=== PATIENT | female | born 1970 | race African-American/Black ===

== ENCOUNTER 2023-02-20 22:13 | Observation (INO) | payer OTHER ==
[2023-02-20] MEDS ORDERED: ACETAMINOPHEN 1000 MG/100 ML BAG IVPB ONE (23:50)
[2023-02-20] MEDS ORDERED: ACETAMINOPHEN INJECTION 100 ML IVPB ONE (23:59)
[2023-02-21 00:08] LABS: BASO % 0.8 % (0-2.0); HEMATOCRIT 25.6 % (32.4-45.2); HEMOGLOBIN 8.4 GM/dL (10.7-15.3); LYMPH % 21.2 % (8-40); MCH 24.7 pg (25.7-33.7); MCHC 32.7 g/dl (32.0-36.0); MEAN CELL VOLUME 75.5 fl (80-96); MONO % 13.1 % (3.8-10.2); NEUT % 63.9 % (42.8-82.8); PLATELET COUNT 305 10^3/uL (134-434); RBC 3.39 M/mm3 (3.60-5.2); RDW 16.2 % (11.6-15.6); WHITE BLOOD COUNT 6.9 K/mm3 (4.0-10.0)
[2023-02-21 00:30] LABS: URINE APPEARANCE CLEAR; URINE BILIRUBIN NEGATIVE (NEGATIVE); URINE COLOR YELLOW; URINE GLUCOSE (UA) NEGATIVE (NEGATIVE); URINE KETONE NEGATIVE (NEGATIVE); URINE LEUK ESTERASE NEGATIVE (NEGATIVE); URINE NITRITE NEGATIVE (NEGATIVE); URINE PROTEIN TRACE (NEGATIVE)
[2023-02-21 00:33] LABS: ALBUMIN 2.2 g/dl (3.4-5.0); CALCIUM 8.5 mg/dL (8.5-10.1)
[2023-02-21 00:34] LABS: BLOOD UREA NITROGEN 7.5 mg/dL (7-18)
[2023-02-21 00:38] LABS: BILIRUBIN,TOTAL 0.7 mg/dL (0.2-1); CREATININE 0.3 mg/dL (0.55-1.3); TOT PROT 6.3 g/dl (6.4-8.2)
[2023-02-21] MEDS ORDERED: morphine CARPU-JECT 2 MG/1 ML DISP.SYRIN IVPUSH PRN (08:16)
[2023-02-21] MEDS ORDERED: ACETAMINOPHEN 325 MG TABLET (FP) PO PRN (08:16)
[2023-02-21] MEDS ORDERED: ENOXAPARIN NA (PORCINE) 40 MG/0.4 ML DISP.SYRIN SQ ONE (08:20)
[2023-02-21] MEDS: ENOXAPARIN NA (PORCINE) 40 MG/0.4 ML DISP.SYRIN SQ SCH (08:57)
[2023-02-22 08:37] LABS: HEMATOCRIT 23.1 % (32.4-45.2); HEMOGLOBIN 7.8 GM/dL (10.7-15.3); MCH 25.5 pg (25.7-33.7); MCHC 33.9 g/dl (32.0-36.0); MEAN CELL VOLUME 75.2 fl (80-96); MEAN PLT VOLUME 7.3 fl (7.5-11.1); PLATELET COUNT 276 10^3/uL (134-434); RBC 3.07 M/mm3 (3.60-5.2); RDW 16.2 % (11.6-15.6); WHITE BLOOD COUNT 6.5 K/mm3 (4.0-10.0)
[2023-02-22 08:49] LABS: MAGNESIUM 1.9 mg/dL (1.8-2.4)
[2023-02-22 08:50] LABS: BLOOD UREA NITROGEN 5.8 mg/dL (7-18); CALCIUM 8.6 mg/dL (8.5-10.1)
[2023-02-22 08:52] LABS: CREATININE 0.3 mg/dL (0.55-1.3)
[2023-02-22 08:55] LABS: BILIRUBIN,TOTAL 0.9 mg/dL (0.2-1); TOT PROT 5.6 g/dl (6.4-8.2)
[2023-02-22] MEDS ORDERED: ENOXAPARIN NA (PORCINE) 40 MG/0.4 ML DISP.SYRIN SQ ONE (12:07)
[2023-02-22] MEDS: ENOXAPARIN NA (PORCINE) 40 MG/0.4 ML DISP.SYRIN SQ SCH (12:10)
[2023-02-23] MEDS ORDERED: MELATONIN 5 MG TABLETS PO PRN (02:07)
[2023-02-23 08:58] LABS: HEMATOCRIT 25.6 % (32.4-45.2); HEMOGLOBIN 8.7 GM/dL (10.7-15.3); MCH 25.5 pg (25.7-33.7); MEAN CELL VOLUME 74.9 fl (80-96); MEAN PLT VOLUME 7.5 fl (7.5-11.1); PLATELET COUNT 303 10^3/uL (134-434); RBC 3.42 M/mm3 (3.60-5.2); RDW 15.8 % (11.6-15.6); WHITE BLOOD COUNT 6.9 K/mm3 (4.0-10.0)
[2023-02-23 09:13] LABS: CALCIUM 8.5 mg/dL (8.5-10.1)
[2023-02-23 09:14] LABS: ALBUMIN 2.1 g/dl (3.4-5.0); BLOOD UREA NITROGEN 4.7 mg/dL (7-18); MAGNESIUM 1.7 mg/dL (1.8-2.4)
[2023-02-23 09:17] LABS: CREATININE 0.3 mg/dL (0.55-1.3); PHOSPHOROUS 3.5 mg/dL (2.5-4.9)
[2023-02-23 09:18] LABS: TOT PROT 6.2 g/dl (6.4-8.2)
[2023-02-23 09:19] LABS: BILIRUBIN,TOTAL 1.1 mg/dL (0.2-1)
[2023-02-23] MEDS: ENOXAPARIN NA (PORCINE) 40 MG/0.4 ML DISP.SYRIN SQ SCH (10:14)
[2023-02-23 16:19] VITALS: BMI 21.7
[2023-02-24] MEDS: ENOXAPARIN NA (PORCINE) 40 MG/0.4 ML DISP.SYRIN SQ SCH (10:28)
[2023-02-25 02:07] VITALS: BP 133/73; PULSE 124; RESP 18; TEMP 98.7
== END 2023-02-24 22:55 | disposition short-term general hospital (02) ==
LOC: JER 22:13 → UNDOADMOB 02-21 05:22 → INTOOBSV 02-21 05:22 → JERBED 02-21 05:22 → J7W 02-22 21:11 → JERBED 02-22 21:11 → J7W 02-23 14:46
PROVIDERS: ADMIT Internal Medicine; ATTEND Internal Medicine
PROC: 3E033NZ Introduction of Analgesics, Hypnotics, Sedatives into Peripheral Vein, Percutaneous Approach (ICD-10-PCS; principal; 2023-02-23)
PROC: 3E023GC Introduction of Other Therapeutic Substance into Muscle, Percutaneous Approach (ICD-10-PCS; 2023-02-23)
DX: C80.1 Malignant (primary) neoplasm, unspecified (principal)
CPT/HCPCS: 36415; 71260-TC; 74177-TC; 76830-TC; 80053; 81003; 82607; 82728; 82746; 83540; 83550; 83735; 84100; 84466; 85025; 85027; 85045; 96372; 96374; 99285-25; C9803-CS; G0378; Q9967; U0003; U0005

== ENCOUNTER 2023-03-21 00:50 | Emergency (ER) | payer OTHER ==
[2023-03-21 01:03] VITALS: TEMP 98.8; BMI 26.4
[2023-03-21 01:43] LABS: BASO % 0.3 % (0-2.0); EOS % 0.1 % (0-4.5); HEMATOCRIT 21.8 % (32.4-45.2); LYMPH % 7.7 % (8-40); MCHC 32.2 g/dl (32.0-36.0); MEAN CELL VOLUME 77.6 fl (80-96); MEAN PLT VOLUME 7.5 fl (7.5-11.1); MONO % 4.9 % (3.8-10.2); PLATELET COUNT 305 10^3/uL (134-434); RBC 2.81 M/mm3 (3.60-5.2); RDW 18.6 % (11.6-15.6); WHITE BLOOD COUNT 18.4 K/mm3 (4.0-10.0)
[2023-03-21 01:50] LABS: INR 1.2 (0.83-1.09); PROTHROMBIN TIME (PATIENT) 13.9 SEC (9.7-13.0)
[2023-03-21 01:52] LABS: ACTIVATED PTT 24.4 SECONDS (25.2-36.5)
[2023-03-21 02:04] LABS: CHLORIDE 101 mmol/L (98-107); POTASSIUM 3.8 mmol/L (3.5-5.1); SODIUM 130 mmol/L (136-145)
[2023-03-21 02:06] LABS: ALBUMIN 1.5 g/dl (3.4-5.0); ANION GAP 8 MMOL/L (8-16); CO2 21 mmol/L (21-32); GLUCOSE,RANDOM 121 mg/dL (74-106); MAGNESIUM 1.6 mg/dL (1.8-2.4)
[2023-03-21 02:07] LABS: CALCIUM 7.7 mg/dL (8.5-10.1)
[2023-03-21 02:09] LABS: CREATININE 0.3 mg/dL (0.55-1.3); SGOT/AST 110 U/L (15-37); SGPT/ALT 33 U/L (13-61)
[2023-03-21 02:11] LABS: ALK PHOS 109 U/L (45-117); BILIRUBIN,TOTAL 1.2 mg/dL (0.2-1); TOT PROT 5.9 g/dl (6.4-8.2)
[2023-03-21] MEDS ORDERED: MAGNESIUM SULF 50% (8.12 MEQ/2 ML-1 GM VIAL) IVPB ONE (03:15)
[2023-03-21] MEDS ORDERED: MAGNESIUM SULFATE IN WATER 2 GM/50 ML IVPB IVPB ONE (03:16)
[2023-03-21 09:37] VITALS: BP 110/62; PULSE 93; RESP 32
== END 2023-03-21 09:37 | disposition short-term general hospital (02) ==
LOC: JER 00:50
PROC: 3E033GC Introduction of Other Therapeutic Substance into Peripheral Vein, Percutaneous Approach (ICD-10-PCS; principal; 2023-03-21)
DX: K13.70 Unspecified lesions of oral mucosa (principal); R06.02 Shortness of breath; R05.1 Acute cough; C79.9 Secondary malignant neoplasm of unspecified site; Z20.822 Contact with and (suspected) exposure to COVID-19
CPT/HCPCS: 0241U-QW; 36415; 71045-TC-FY; 71275-TC; 80053; 82550; 82553; 83735; 84484; 85025; 85610; 85730; 86850; 86900; 86901; 93005; 93010; 99285-25; Q9967